=== PATIENT | male | born 1975 | race Asian ===

== ENCOUNTER 2020-03-24 16:17 | Emergency (ER) | payer SELFPAY ==
[~2020-03-24] VITALS: Ht 165.1 cm; Wt 49.9 kg
[2020-03-24 16:20] VITALS: BP_SYST 142
--- NOTE | 2020-03-24 16:26 | NUR ---
Patient triaged and placed in waiting room. VSS and patient appears in no acute distress at this time. Accompanied by group manager, awaiting available bed, and MD notified of need for MSE.
--- NOTE | 2020-03-24 17:34 | NUR ---
Patient to ER bed 1 to gown for evaluation. Side rails up. Report given to FLACO Lambert.
--- NOTE | 2020-03-24 17:42 | NUR ---
Pt brought by skilled nursing caregiver, pt c/o groin pain for few days, skin pink and warm, cap refill <3, VSS, respirations even and unlabored, pt afebrile, will cont to monitor.
--- NOTE | 2020-03-24 17:45 | NUR ---
Dr Graff evaluating patient at bedside
--- NOTE | 2020-03-24 18:15 | NUR ---
Patient given written and verbal discharge instructions and verbalizes understanding. ER MD discussed with patient the results and treatment provided. Patient in stable condition. ID arm band removed. IV catheter removed intact and dressing applied, no active bleeding. Rx of tramadol,bactrim DS given. Patient educated on pain management and to follow up with PMD. Pain Scale 0/10. Opportunity for questions provided and answered. Medication side effect fact sheet provided.
[2020-03-24 18:16] VITALS: BP_SYST 113
== END 2020-03-24 18:16 | disposition home or self-care (01) ==
LOC: SED 16:17
DX: L03.314 Cellulitis of groin (principal); R10.2 Pelvic and perineal pain
CPT/HCPCS: 99284

== ENCOUNTER 2020-04-17 16:09 | Emergency (ER) | payer SELFPAY ==
[~2020-04-17] VITALS: Ht 165.1 cm; Wt 63.5 kg
[2020-04-17 16:17] VITALS: BP_SYST 119
[2020-04-17 16:40] LABS: BILIRUBIN,URINE NEGATIVE (NEGATIVE); BLOOD, URINE 2+ (NEGATIVE); CLARITY/URINE SL CLOUDY (CLEAR); COLOR,URINE YELLOW (YELLOW); GLUCOSE,URINE NEGATIVE (NEGATIVE); KETONES,URINE NEGATIVE (NEGATIVE); LEUKOCYTE ESTERASE ,URINE 3+ (NEGATIVE); NITRITE, URINE NEGATIVE (NEGATIVE); PROTEIN URINE 1+ (NEGATIVE); UROBILINOGEN,URINE 0.2 (0.2-1.0)
[2020-04-17 16:47] LABS: BACTERIA,URINE MODERATE /HPF (None Seen); MUCUS,URINE None Seen /LPF (None Seen); WBC,URINE >100 /HPF (0-3)
[2020-04-17 17:04] VITALS: BP_SYST 119
== END 2020-04-17 17:06 | disposition home or self-care (01) ==
LOC: SED 16:09
DX: N39.0 Urinary tract infection, site not specified (principal)
CPT/HCPCS: 81000-TC; 87086; 99283

== ENCOUNTER 2020-04-30 16:54 | Emergency (ER) | payer SELFPAY ==
[~2020-04-30] VITALS: Ht 165.1 cm; Wt 63.5 kg
[2020-04-30 17:18] VITALS: BP_SYST 120
--- NOTE | 2020-04-30 17:38 | NUR ---
Patient accompanied by strip stamp straightener c/o of wound to genital area for unknown days. Also here for urine recheck after completing abx. denies any pain.
--- NOTE | 2020-04-30 17:38 | NUR ---
Patient to ER bed 02 to gown for evaluation. Side rails up. Report given to FLACO Rasmussen
--- NOTE | 2020-04-30 18:00 | NUR ---
ER Dr. Bhardwaj at bedside examining patient and performing wound treatment
[2020-04-30 18:19] LABS: BILIRUBIN,URINE NEGATIVE (NEGATIVE); BLOOD, URINE 2+ (NEGATIVE); CLARITY/URINE CLOUDY (CLEAR); COLOR,URINE YELLOW (YELLOW); GLUCOSE,URINE NEGATIVE (NEGATIVE); KETONES,URINE NEGATIVE (NEGATIVE); LEUKOCYTE ESTERASE ,URINE 3+ (NEGATIVE); NITRITE, URINE POSITIVE (NEGATIVE); PROTEIN URINE 2+ (NEGATIVE); UROBILINOGEN,URINE 0.2 (0.2-1.0)
[2020-04-30] MEDS: cephALEXin 500 MG CAPSULE PO ONE (18:24)
--- NOTE | 2020-04-30 18:37 | NUR ---
Patient given written and verbal discharge instructions and verbalizes understanding. ER MD discussed with patient the results and treatment provided. Patient in stable condition. ID arm band removed. Rx of keflex given. Patient educated on pain management and to follow up with PMD. Pain Scale 0/10. Opportunity for questions provided and answered. Medication side effect fact sheet provided.
[2020-04-30 18:40] VITALS: BP_SYST 120
[2020-04-30 18:46] LABS: BACTERIA,URINE MODERATE /HPF (None Seen); MUCUS,URINE None Seen /LPF (None Seen); WBC,URINE >100 /HPF (0-3)
== END 2020-04-30 18:40 | disposition home or self-care (01) ==
LOC: SED 16:54
DX: N39.0 Urinary tract infection, site not specified (principal)
CPT/HCPCS: 81000-TC; 87086; 87186-TC; 99283

== ENCOUNTER 2020-07-15 15:08 | Inpatient (IN) | payer MEDICAID, SELFPAY ==
[~2020-07-15] VITALS: Ht 165.1 cm; Wt 59.9 kg
[2020-07-15 15:19] VITALS: BP_SYST 132
[2020-07-15] MEDS ORDERED: NACL 0.9% 1,000 ML IV ONE (17:30)
[2020-07-15] MEDS ORDERED: ONDANSETRON HCL 4 MG/2 ML VIAL IVP ONE (17:30)
[2020-07-15] MEDS ORDERED: KETOROLAC TROMETHAMINE 30 MG VIAL IVP ONE (17:30)
[2020-07-15 18:02] LABS: BASOPHILS # (AUTO) 0.1 K/uL (0.0-0.2); BASOPHILS % (AUTO) 0.4 % (0.0-2.0); HEMATOCRIT 39.3 % (36-54); HEMOGLOBIN 12.5 g/dL (14.0-18.0); LYMPHOCYTES # (AUTO) 0.4 K/uL (1.0-5.5); LYMPHOCYTES % (AUTO) 2.7 % (20.5-51.5); MEAN CORPUSCULAR HEMOGLOBIN 33 pg (27-31); MEAN CORPUSCULAR HGB CONC 32 % (32-36); MEAN CORPUSCULAR VOLUME 103 fL (79.0-98.0); MONOCYTES # (AUTO) 0.8 K/uL (0.0-1.0); MONOCYTES % (AUTO) 5.9 % (1.7-9.3); NEUTROPHILS # (AUTO) 12.8 K/uL (1.8-7.7); PLATELET COUNT (AUTO) 381 K/uL (130-430); RED BLOOD CELL COUNT(AUTO) 3.82 MIL/uL (4.2-6.2); RED CELL DISTRIBUTION WIDTH 13.2 % (9.0-15.0)
[2020-07-15 18:40] LABS: CALCIUM 9.8 mg/dL (8.4-11.0)
[2020-07-15 18:41] LABS: ALBUMIN 3.1 g/dL (3.4-4.8); CREATININE 15.92 mg/dL (0.55-1.30); TOTAL BILIRUBIN 0.3 mg/dL (0.0-1.0)
[2020-07-15] MEDS ORDERED: ALBUTEROL SULFATE 0.083% 2.5 MG/3 ML VIAL.NEB INH ONE (18:45)
[2020-07-15] MEDS ORDERED: INSULIN Lispro 100 UNITS/ML VIAL (humaLOG) IV ONE (18:45)
[2020-07-15] MEDS ORDERED: DEXTROSE 50% JECT 50 ML DISP.SYRIN IVP ONE (19:30)
[2020-07-15 19:36] LABS: BILIRUBIN,URINE NEGATIVE (NEGATIVE); BLOOD, URINE 3+ (NEGATIVE); CLARITY/URINE TURBID (CLEAR); COLOR,URINE YELLOW (YELLOW); GLUCOSE,URINE NEGATIVE (NEGATIVE); KETONES,URINE TRACE (NEGATIVE); LEUKOCYTE ESTERASE ,URINE 2+ (NEGATIVE); NITRITE, URINE NEGATIVE (NEGATIVE); PH,URINE 6.5 (5.0-8.0); PROTEIN URINE 3+ (NEGATIVE); UROBILINOGEN,URINE 0.2 (0.2-1.0)
[2020-07-15 20:06] LABS: BACTERIA,URINE MODERATE /HPF (None Seen); MUCUS,URINE None Seen /LPF (None Seen); RBC,URINE 20-50 /HPF (0-3); WBC,URINE >100 /HPF (0-3)
[2020-07-15] MEDS ORDERED: CALCIUM GLUCONATE 1 GM/10 ML VIAL IVP ONE (20:15)
[2020-07-15] MEDS ORDERED: CALCIUM GLUCONATE 1 GM/10 ML VIAL ONE (20:37)
[2020-07-15] MEDS ORDERED: 0.45% NS 500 ML IV ONE (20:45)
[2020-07-15] MEDS ORDERED: SODIUM BICARBONATE 8.4% JECT 50 MEQ/50 ML SYRINGE IVP ONE (20:45)
[2020-07-15 21:10] VITALS: BP_SYST 118
[2020-07-16] VITALS: BP_SYST 114
[2020-07-16] MEDS ORDERED: HYDROcodone/ACETAMIN 5-325 MG TAB (NORCO/ VICODIN) PO PRN (00:15)
[2020-07-16] MEDS ORDERED: ONDANSETRON HCL 4 MG/2 ML VIAL IVP PRN (00:15)
[2020-07-16] MEDS ORDERED: LORazepam 2 MG/ML VIAL IVP PRN (00:15)
[2020-07-16] MEDS ORDERED: ACETAMINOPHEN 325 MG TABLET PO PRN (00:15)
[2020-07-16] MEDS ORDERED: HYDROcodone/ACETAMIN 10-325 MG TAB PO PRN (00:15)
[2020-07-16] MEDS ORDERED: NALOXONE HCL 0.4 MG/ML AMP (NARCAN) IVP PRN ×2 (00:15)
[2020-07-16] MEDS ORDERED: cefTRIAXone 1 GM IVPB PREMIX 50 ML IV ONE (04:24)
[2020-07-16] MEDS: cefTRIAXone 1 GM IVPB PREMIX 50 ML IV SCH (04:51)
[2020-07-16 06:43] LABS: BASOPHILS % (AUTO) 0.2 % (0.0-2.0); HEMATOCRIT 33.7 % (36-54); LYMPHOCYTES # (AUTO) 0.5 K/uL (1.0-5.5); LYMPHOCYTES % (AUTO) 5.1 % (20.5-51.5); MEAN CORPUSCULAR HEMOGLOBIN 33 pg (27-31); MEAN CORPUSCULAR HGB CONC 33 % (32-36); MEAN CORPUSCULAR VOLUME 101 fL (79.0-98.0); MONOCYTES # (AUTO) 0.8 K/uL (0.0-1.0); MONOCYTES % (AUTO) 7.9 % (1.7-9.3); NEUTROPHILS # (AUTO) 8.6 K/uL (1.8-7.7); NEUTROPHILS % (AUTO) 86.8 % (40.0-70.0); PLATELET COUNT (AUTO) 343 K/uL (130-430); RED BLOOD CELL COUNT(AUTO) 3.33 MIL/uL (4.2-6.2); RED CELL DISTRIBUTION WIDTH 13.2 % (9.0-15.0); WHITE BLOOD COUNT (AUTO) 9.9 K/uL (4.8-10.8)
[2020-07-16 07:26] LABS: ALBUMIN 2.4 g/dL (3.4-4.8); CALCIUM 8.4 mg/dL (8.4-11.0); TOTAL BILIRUBIN 0.4 mg/dL (0.0-1.0)
[2020-07-16 08:00] VITALS: BP_SYST 146
[2020-07-16 09:20] LABS: CREATININE 12.28 mg/dL (0.55-1.30); POTASSIUM 6.5 mmol/L (3.5-5.1)
[2020-07-16 12:00] VITALS: BP_SYST 132
[2020-07-16 13:35] LABS: CALCIUM 8.4 mg/dL (8.4-11.0); POTASSIUM 5.7 mmol/L (3.5-5.1)
[2020-07-16 13:41] LABS: ALBUMIN 2.4 g/dL (3.4-4.8); TOTAL BILIRUBIN 0.2 mg/dL (0.0-1.0)
[2020-07-16 14:08] LABS: CREATININE 11.53 mg/dL (0.55-1.30)
[2020-07-16] MEDS ORDERED: SODIUM POLYSTYRENE SULFONATE 15 GM/60 ML UDBTL PO ONE (14:30)
[2020-07-16 15:48] VITALS: BP_SYST 141
[2020-07-16 16:07] VITALS: BP_SYST 141
[2020-07-16 20:00] VITALS: BP_SYST 136
[2020-07-17] VITALS: BP_SYST 130
[2020-07-17] MEDS: cefTRIAXone 1 GM IVPB PREMIX 50 ML IV SCH (01:44)
[2020-07-17 07:05] LABS: BASOPHILS % (AUTO) 0.1 % (0.0-2.0); HEMATOCRIT 33.5 % (36-54); HEMOGLOBIN 11.3 g/dL (14.0-18.0); LYMPHOCYTES # (AUTO) 0.6 K/uL (1.0-5.5); LYMPHOCYTES % (AUTO) 6.5 % (20.5-51.5); MEAN CORPUSCULAR HEMOGLOBIN 34 pg (27-31); MEAN CORPUSCULAR HGB CONC 34 % (32-36); MEAN CORPUSCULAR VOLUME 100 fL (79.0-98.0); MONOCYTES # (AUTO) 0.6 K/uL (0.0-1.0); MONOCYTES % (AUTO) 6.5 % (1.7-9.3); NEUTROPHILS # (AUTO) 7.4 K/uL (1.8-7.7); NEUTROPHILS % (AUTO) 86.9 % (40.0-70.0); PLATELET COUNT (AUTO) 325 K/uL (130-430); RED BLOOD CELL COUNT(AUTO) 3.36 MIL/uL (4.2-6.2); RED CELL DISTRIBUTION WIDTH 13.1 % (9.0-15.0); WHITE BLOOD COUNT (AUTO) 8.6 K/uL (4.8-10.8)
[2020-07-17 08:00] VITALS: BP_SYST 131
[2020-07-17 08:17] LABS: ERYTHROCYTE SEDIMENTATION RATE 82 MM/HR (0-15)
[2020-07-17 08:24] LABS: ALBUMIN 2.1 g/dL (3.4-4.8); CALCIUM 7.7 mg/dL (8.4-11.0); PHOSPHORUS 5.6 mg/dL (2.7-4.5); POTASSIUM 3.9 mmol/L (3.5-5.1); TOTAL BILIRUBIN 0.3 mg/dL (0.0-1.0)
[2020-07-17 08:46] LABS: CREATININE 7.53 mg/dL (0.55-1.30)
[2020-07-17 10:29] LABS: C-REACTIVE PROTEIN QUANT 22.8 mg/dL (0-0.5)
[2020-07-17] MEDS: NACL 0.9% 1,000 ML IV SCH (10:30)
[2020-07-17 12:10] VITALS: BP_SYST 113
[2020-07-17 16:10] VITALS: BP_SYST 119
[2020-07-18 00:16] VITALS: BP_SYST 107
[2020-07-18] MEDS: cefTRIAXone 1 GM IVPB PREMIX 50 ML IV SCH (01:24)
[2020-07-18] MEDS: NACL 0.9% 1,000 ML IV SCH ×4 (01:24→20:12)
[2020-07-18 06:52] LABS: BASOPHILS % (AUTO) 0.1 % (0.0-2.0); EOSINOPHILS # (AUTO) 0.1 K/uL (0.0-0.4); EOSINOPHILS % (AUTO) 0.6 % (0.0-4.0); HEMATOCRIT 30.9 % (36-54); HEMOGLOBIN 10.4 g/dL (14.0-18.0); LYMPHOCYTES # (AUTO) 0.9 K/uL (1.0-5.5); LYMPHOCYTES % (AUTO) 11.8 % (20.5-51.5); MEAN CORPUSCULAR HEMOGLOBIN 34 pg (27-31); MEAN CORPUSCULAR HGB CONC 34 % (32-36); MEAN CORPUSCULAR VOLUME 100 fL (79.0-98.0); MONOCYTES # (AUTO) 0.8 K/uL (0.0-1.0); NEUTROPHILS # (AUTO) 6.1 K/uL (1.8-7.7); NEUTROPHILS % (AUTO) 77.5 % (40.0-70.0); PLATELET COUNT (AUTO) 290 K/uL (130-430); RED CELL DISTRIBUTION WIDTH 12.9 % (9.0-15.0); WHITE BLOOD COUNT (AUTO) 7.9 K/uL (4.8-10.8)
[2020-07-18 07:45] LABS: ALBUMIN 1.8 g/dL (3.4-4.8); CALCIUM 7.4 mg/dL (8.4-11.0); CREATININE 2.86 mg/dL (0.55-1.30); POTASSIUM 3.5 mmol/L (3.5-5.1); TOTAL BILIRUBIN 0.2 mg/dL (0.0-1.0)
[2020-07-18 07:59] LABS: ERYTHROCYTE SEDIMENTATION RATE 78 MM/HR (0-15)
[2020-07-18 08:34] VITALS: BP_SYST 123
[2020-07-18 10:34] LABS: C-REACTIVE PROTEIN QUANT 18.3 mg/dL (0-0.5)
[2020-07-18 12:00] VITALS: BP_SYST 105
[2020-07-18 16:00] VITALS: BP_SYST 114; BP_SYST 144
[2020-07-18 20:00] VITALS: BP_SYST 111
[2020-07-19] VITALS: BP_SYST 117
[2020-07-19] MEDS: cefTRIAXone 1 GM IVPB PREMIX 50 ML IV SCH (01:06)
[2020-07-19 07:24] LABS: BASOPHILS % (AUTO) 0.2 % (0.0-2.0); EOSINOPHILS # (AUTO) 0.2 K/uL (0.0-0.4); EOSINOPHILS % (AUTO) 2.5 % (0.0-4.0); HEMATOCRIT 36.3 % (36-54); HEMOGLOBIN 12.2 g/dL (14.0-18.0); LYMPHOCYTES # (AUTO) 1.3 K/uL (1.0-5.5); LYMPHOCYTES % (AUTO) 15.1 % (20.5-51.5); MEAN CORPUSCULAR HEMOGLOBIN 34 pg (27-31); MEAN CORPUSCULAR HGB CONC 34 % (32-36); MEAN CORPUSCULAR VOLUME 99 fL (79.0-98.0); MONOCYTES # (AUTO) 0.7 K/uL (0.0-1.0); MONOCYTES % (AUTO) 8.5 % (1.7-9.3); NEUTROPHILS # (AUTO) 6.4 K/uL (1.8-7.7); NEUTROPHILS % (AUTO) 73.7 % (40.0-70.0); PLATELET COUNT (AUTO) 338 K/uL (130-430); RED BLOOD CELL COUNT(AUTO) 3.65 MIL/uL (4.2-6.2); RED CELL DISTRIBUTION WIDTH 12.8 % (9.0-15.0); WHITE BLOOD COUNT (AUTO) 8.6 K/uL (4.8-10.8)
[2020-07-19 07:57] LABS: CALCIUM 7.4 mg/dL (8.4-11.0); CREATININE 1.68 mg/dL (0.55-1.30); POTASSIUM 3.6 mmol/L (3.5-5.1)
[2020-07-19 07:58] LABS: PHOSPHORUS 2.4 mg/dL (2.7-4.5)
[2020-07-19 08:00] VITALS: BP_SYST 115
[2020-07-19 08:54] LABS: ERYTHROCYTE SEDIMENTATION RATE 85 MM/HR (0-15)
[2020-07-19] MEDS ORDERED: NA PHOS 15 MM in NS 250 ML IV ONE (11:15)
[2020-07-19] MEDS ORDERED: MAGNESIUM SULFATE 50 ML IV ONE (11:15)
[2020-07-19 12:00] VITALS: BP_SYST 108
[2020-07-19] MEDS: NACL 0.9% 1,000 ML IV SCH ×2 (12:22→20:15)
[2020-07-19 16:00] VITALS: BP_SYST 102
[2020-07-19 16:41] LABS: C-REACTIVE PROTEIN QUANT 12.9 mg/dL (0-0.5)
[2020-07-19 20:02] VITALS: BP_SYST 104
[2020-07-20 00:27] VITALS: BP_SYST 92
[2020-07-20] MEDS: cefTRIAXone 1 GM IVPB PREMIX 50 ML IV SCH (02:37)
[2020-07-20 07:46] LABS: BASOPHILS % (AUTO) 0.4 % (0.0-2.0); EOSINOPHILS # (AUTO) 0.3 K/uL (0.0-0.4); EOSINOPHILS % (AUTO) 2.6 % (0.0-4.0); HEMATOCRIT 32.4 % (36-54); HEMOGLOBIN 10.8 g/dL (14.0-18.0); LYMPHOCYTES # (AUTO) 1.4 K/uL (1.0-5.5); LYMPHOCYTES % (AUTO) 14.5 % (20.5-51.5); MEAN CORPUSCULAR HEMOGLOBIN 33 pg (27-31); MEAN CORPUSCULAR HGB CONC 34 % (32-36); MEAN CORPUSCULAR VOLUME 100 fL (79.0-98.0); MONOCYTES # (AUTO) 0.7 K/uL (0.0-1.0); MONOCYTES % (AUTO) 7.3 % (1.7-9.3); NEUTROPHILS # (AUTO) 7.4 K/uL (1.8-7.7); NEUTROPHILS % (AUTO) 75.2 % (40.0-70.0); PLATELET COUNT (AUTO) 311 K/uL (130-430); RED BLOOD CELL COUNT(AUTO) 3.25 MIL/uL (4.2-6.2); RED CELL DISTRIBUTION WIDTH 12.6 % (9.0-15.0); WHITE BLOOD COUNT (AUTO) 9.8 K/uL (4.8-10.8)
[2020-07-20 08:09] LABS: CALCIUM 7.2 mg/dL (8.4-11.0); CREATININE 1.69 mg/dL (0.55-1.30); PHOSPHORUS 2.8 mg/dL (2.7-4.5); POTASSIUM 3.7 mmol/L (3.5-5.1); TOTAL BILIRUBIN 0.1 mg/dL (0.0-1.0)
[2020-07-20 09:01] LABS: C-REACTIVE PROTEIN QUANT 4.9 mg/dL (0-0.5)
[2020-07-20] MEDS: NACL 0.9% 1,000 ML IV SCH (10:43)
[2020-07-20 10:57] LABS: ERYTHROCYTE SEDIMENTATION RATE 81 MM/HR (0-15)
[2020-07-20 11:43] VITALS: BP_SYST 97
[2020-07-20 15:26] VITALS: BP_SYST 91
[2020-07-20 20:00] VITALS: BP_SYST 101
[2020-07-21] VITALS: BP_SYST 104
[2020-07-21] MEDS: cefTRIAXone 1 GM IVPB PREMIX 50 ML IV SCH (00:42)
[2020-07-21] MEDS: NACL 0.9% 1,000 ML IV SCH (00:47)
[2020-07-21 07:36] LABS: ALBUMIN 2.1 g/dL (3.4-4.8); CALCIUM 7.6 mg/dL (8.4-11.0); CREATININE 1.55 mg/dL (0.55-1.30); PHOSPHORUS 2.7 mg/dL (2.7-4.5); POTASSIUM 3.7 mmol/L (3.5-5.1); TOTAL BILIRUBIN 0.2 mg/dL (0.0-1.0)
[2020-07-21 07:37] LABS: BASOPHILS % (AUTO) 0.5 % (0.0-2.0); EOSINOPHILS # (AUTO) 0.2 K/uL (0.0-0.4); EOSINOPHILS % (AUTO) 1.9 % (0.0-4.0); HEMOGLOBIN 11.4 g/dL (14.0-18.0); LYMPHOCYTES # (AUTO) 1.6 K/uL (1.0-5.5); MEAN CORPUSCULAR HEMOGLOBIN 33 pg (27-31); MEAN CORPUSCULAR HGB CONC 34 % (32-36); MEAN CORPUSCULAR VOLUME 99 fL (79.0-98.0); MONOCYTES # (AUTO) 0.7 K/uL (0.0-1.0); NEUTROPHILS # (AUTO) 8.1 K/uL (1.8-7.7); NEUTROPHILS % (AUTO) 75.6 % (40.0-70.0); PLATELET COUNT (AUTO) 318 K/uL (130-430); RED BLOOD CELL COUNT(AUTO) 3.42 MIL/uL (4.2-6.2); RED CELL DISTRIBUTION WIDTH 12.7 % (9.0-15.0); WHITE BLOOD COUNT (AUTO) 10.8 K/uL (4.8-10.8)
[2020-07-21 08:04] VITALS: BP_SYST 114
[2020-07-21 09:59] LABS: C-REACTIVE PROTEIN QUANT 3.3 mg/dL (0-0.5)
[2020-07-21 10:08] LABS: ERYTHROCYTE SEDIMENTATION RATE 87 MM/HR (0-15)
[2020-07-21 11:28] VITALS: BP_SYST 109
[2020-07-21 14:59] LABS: PROTHROMBIN TIME 9.8 SECS (9.5-12.5)
[2020-07-21 15:23] VITALS: BP_SYST 113
[2020-07-21] MEDS ORDERED: ROCURONIUM BROMIDE 10 MG/ML (ZEMURON) ONE (19:10)
[2020-07-21] MEDS ORDERED: GLYCOPYRROLATE 0.2 MG/ML VIAL ONE (19:10)
[2020-07-21] MEDS ORDERED: NS IRRIG SOLN 5000 ML IR ONE (19:10)
[2020-07-21] MEDS ORDERED: ONDANSETRON HCL 4 MG/2 ML VIAL ONE (19:10)
[2020-07-21] MEDS ORDERED: fentaNYL CITRATE/PF 100 MCG/2 ML AMP ONE (19:10)
[2020-07-21] MEDS ORDERED: METOCLOPRAMIDE HCL 10 MG/2 ML VIAL ONE (19:10)
[2020-07-21] MEDS ORDERED: LIDOCAINE 1% 10 MG/ML, 20 ML MDV ONE (19:10)
[2020-07-21] MEDS ORDERED: MIDAZOLAM HCL 5 MG/ML VIAL (VERSED) IV ONE (19:10)
[2020-07-21] MEDS ORDERED: LR 1,000 ML IV.SOLN IV ONE (19:10)
[2020-07-21] MEDS ORDERED: SEVOFLURANE 15 MIN GAS INH ONE (19:10)
[2020-07-21] MEDS ORDERED: PHENYLEPHRINE HCL 10 MG/ML VIAL (NEOSYNEPHRINE) ONE (19:10)
[2020-07-21] MEDS ORDERED: PROPOFOL 200MG/ 20ML VIAL (DIPRIVAN) IV ONE (19:10)
[2020-07-21] MEDS ORDERED: HYDROmorphone 1 MG INJ. 1 MG/ML AMPUL ONE (19:10)
[2020-07-21] MEDS ORDERED: NALOXONE HCL 0.4 MG/ML AMP (NARCAN) IVP PRN (19:15)
[2020-07-21] MEDS ORDERED: ONDANSETRON HCL 4 MG/2 ML VIAL IVP PRN (19:15)
[2020-07-21] MEDS ORDERED: LR 1,000 ML IV SCH (19:15)
[2020-07-21] MEDS ORDERED: HYDROmorphone 1 MG INJ. 1 MG/ML AMPUL IVP PRN ×2 (19:15)
[2020-07-21 20:20] VITALS: BP_SYST 115
[2020-07-22 00:03] VITALS: BP_SYST 119
[2020-07-22] MEDS: cefTRIAXone 1 GM IVPB PREMIX 50 ML IV SCH (01:12)
[2020-07-22] MEDS: NACL 0.9% 1,000 ML IV SCH ×2 (01:13→22:02)
[2020-07-22 07:19] LABS: BASOPHILS # (AUTO) 0.1 K/uL (0.0-0.2); BASOPHILS % (AUTO) 0.3 % (0.0-2.0); HEMATOCRIT 35.6 % (36-54); HEMOGLOBIN 11.9 g/dL (14.0-18.0); MEAN CORPUSCULAR HEMOGLOBIN 34 pg (27-31); MEAN CORPUSCULAR HGB CONC 34 % (32-36); MEAN CORPUSCULAR VOLUME 100 fL (79.0-98.0); MONOCYTES # (AUTO) 0.6 K/uL (0.0-1.0); MONOCYTES % (AUTO) 3.1 % (1.7-9.3); NEUTROPHILS # (AUTO) 18.7 K/uL (1.8-7.7); NEUTROPHILS % (AUTO) 91.6 % (40.0-70.0); PLATELET COUNT (AUTO) 378 K/uL (130-430); RED BLOOD CELL COUNT(AUTO) 3.54 MIL/uL (4.2-6.2); RED CELL DISTRIBUTION WIDTH 12.8 % (9.0-15.0); WHITE BLOOD COUNT (AUTO) 20.4 K/uL (4.8-10.8)
[2020-07-22 08:00] VITALS: BP_SYST 124
[2020-07-22 08:09] LABS: CALCIUM 8.5 mg/dL (8.4-11.0); CREATININE 1.68 mg/dL (0.55-1.30); POTASSIUM 4.5 mmol/L (3.5-5.1)
[2020-07-22 08:35] LABS: ERYTHROCYTE SEDIMENTATION RATE 86 MM/HR (0-15)
[2020-07-22 09:57] LABS: C-REACTIVE PROTEIN QUANT 2.9 mg/dL (0-0.5)
[2020-07-22 11:45] VITALS: BP_SYST 119
[2020-07-22 14:37] VITALS: BP_SYST 119
[2020-07-22 16:00] VITALS: BP_SYST 120
[2020-07-22 20:00] VITALS: BP_SYST 126
[2020-07-22] MEDS: metroNIDAZOLE 500 mg/NS 100 ML IV SCH (22:02)
[2020-07-23] VITALS: BP_SYST 109
[2020-07-23 07:48] LABS: BASOPHILS % (AUTO) 0.3 % (0.0-2.0); EOSINOPHILS # (AUTO) 0.1 K/uL (0.0-0.4); EOSINOPHILS % (AUTO) 0.8 % (0.0-4.0); HEMATOCRIT 33.8 % (36-54); HEMOGLOBIN 11.2 g/dL (14.0-18.0); LYMPHOCYTES # (AUTO) 1.3 K/uL (1.0-5.5); LYMPHOCYTES % (AUTO) 9.2 % (20.5-51.5); MEAN CORPUSCULAR HEMOGLOBIN 33 pg (27-31); MEAN CORPUSCULAR HGB CONC 33 % (32-36); MEAN CORPUSCULAR VOLUME 100 fL (79.0-98.0); MONOCYTES # (AUTO) 0.9 K/uL (0.0-1.0); MONOCYTES % (AUTO) 5.9 % (1.7-9.3); NEUTROPHILS # (AUTO) 12.3 K/uL (1.8-7.7); NEUTROPHILS % (AUTO) 83.8 % (40.0-70.0); PLATELET COUNT (AUTO) 368 K/uL (130-430); RED BLOOD CELL COUNT(AUTO) 3.39 MIL/uL (4.2-6.2); RED CELL DISTRIBUTION WIDTH 12.8 % (9.0-15.0); WHITE BLOOD COUNT (AUTO) 14.7 K/uL (4.8-10.8)
[2020-07-23 07:52] LABS: CALCIUM 8.2 mg/dL (8.4-11.0); CREATININE 1.59 mg/dL (0.55-1.30); PHOSPHORUS 2.6 mg/dL (2.7-4.5); POTASSIUM 3.8 mmol/L (3.5-5.1)
[2020-07-23 08:33] LABS: C-REACTIVE PROTEIN QUANT 5.9 mg/dL (0-0.5)
[2020-07-23 09:00] VITALS: BP_SYST 100
[2020-07-23 09:30] VITALS: BP_SYST 100
[2020-07-23] MEDS: metroNIDAZOLE 500 mg/NS 100 ML IV SCH ×2 (09:54→22:13)
[2020-07-23 10:55] LABS: ERYTHROCYTE SEDIMENTATION RATE 86 MM/HR (0-15)
[2020-07-23 12:00] VITALS: BP_SYST 102
[2020-07-23 16:00] VITALS: BP_SYST 115
[2020-07-23] MEDS ORDERED: NA PHOS 15 MM in NS 250 ML IV ONE (17:45)
[2020-07-23] MEDS: NACL 0.9% 1,000 ML IV SCH (18:52)
[2020-07-23 20:00] VITALS: BP_SYST 106
[2020-07-24 00:20] VITALS: BP_SYST 110
[2020-07-24 08:20] VITALS: BP_SYST 104
[2020-07-24 08:21] LABS: BASOPHILS # (AUTO) 0.1 K/uL (0.0-0.2); BASOPHILS % (AUTO) 0.5 % (0.0-2.0); EOSINOPHILS # (AUTO) 0.2 K/uL (0.0-0.4); EOSINOPHILS % (AUTO) 1.4 % (0.0-4.0); HEMATOCRIT 31.5 % (36-54); HEMOGLOBIN 10.5 g/dL (14.0-18.0); LYMPHOCYTES # (AUTO) 1.6 K/uL (1.0-5.5); LYMPHOCYTES % (AUTO) 13.1 % (20.5-51.5); MEAN CORPUSCULAR HEMOGLOBIN 33 pg (27-31); MEAN CORPUSCULAR HGB CONC 33 % (32-36); MEAN CORPUSCULAR VOLUME 99 fL (79.0-98.0); MONOCYTES # (AUTO) 0.8 K/uL (0.0-1.0); MONOCYTES % (AUTO) 6.7 % (1.7-9.3); NEUTROPHILS # (AUTO) 9.6 K/uL (1.8-7.7); NEUTROPHILS % (AUTO) 78.3 % (40.0-70.0); PLATELET COUNT (AUTO) 371 K/uL (130-430); RED BLOOD CELL COUNT(AUTO) 3.17 MIL/uL (4.2-6.2); RED CELL DISTRIBUTION WIDTH 12.7 % (9.0-15.0); WHITE BLOOD COUNT (AUTO) 12.3 K/uL (4.8-10.8)
[2020-07-24] MEDS: metroNIDAZOLE 500 mg/NS 100 ML IV SCH ×2 (09:23→20:25)
[2020-07-24 09:29] LABS: CREATININE 1.37 mg/dL (0.55-1.30)
[2020-07-24 12:00] VITALS: BP_SYST 101
[2020-07-24] MEDS: NACL 0.9% 1,000 ML IV SCH (15:21)
[2020-07-24 15:54] VITALS: BP_SYST 103
[2020-07-24 20:30] VITALS: BP_SYST 108
[2020-07-25] MEDS: NACL 0.9% 1,000 ML IV SCH ×2 (00:25→21:11)
[2020-07-25 06:28] VITALS: BP_SYST 101
[2020-07-25 07:31] LABS: C-REACTIVE PROTEIN QUANT 7.7 mg/dL (0-0.5)
[2020-07-25 07:34] LABS: ERYTHROCYTE SEDIMENTATION RATE 82 MM/HR (0-15)
[2020-07-25 07:44] LABS: BASOPHILS # (AUTO) 0.1 K/uL (0.0-0.2); BASOPHILS % (AUTO) 0.5 % (0.0-2.0); EOSINOPHILS # (AUTO) 0.1 K/uL (0.0-0.4); EOSINOPHILS % (AUTO) 1.4 % (0.0-4.0); HEMATOCRIT 31.7 % (36-54); HEMOGLOBIN 10.9 g/dL (14.0-18.0); LYMPHOCYTES # (AUTO) 1.4 K/uL (1.0-5.5); LYMPHOCYTES % (AUTO) 13.1 % (20.5-51.5); MEAN CORPUSCULAR HEMOGLOBIN 34 pg (27-31); MEAN CORPUSCULAR HGB CONC 34 % (32-36); MEAN CORPUSCULAR VOLUME 99 fL (79.0-98.0); MONOCYTES # (AUTO) 0.7 K/uL (0.0-1.0); MONOCYTES % (AUTO) 6.6 % (1.7-9.3); NEUTROPHILS # (AUTO) 8.5 K/uL (1.8-7.7); NEUTROPHILS % (AUTO) 78.4 % (40.0-70.0); PLATELET COUNT (AUTO) 412 K/uL (130-430); RED BLOOD CELL COUNT(AUTO) 3.21 MIL/uL (4.2-6.2); RED CELL DISTRIBUTION WIDTH 12.7 % (9.0-15.0); WHITE BLOOD COUNT (AUTO) 10.9 K/uL (4.8-10.8)
[2020-07-25 08:00] VITALS: BP_SYST 130
[2020-07-25 08:10] LABS: CREATININE 1.31 mg/dL (0.55-1.30); POTASSIUM 4.2 mmol/L (3.5-5.1)
[2020-07-25] MEDS: metroNIDAZOLE 500 mg/NS 100 ML IV SCH ×2 (08:49→21:03)
[2020-07-25 08:52] LABS: C-REACTIVE PROTEIN QUANT 3.3 mg/dL (0-0.5)
[2020-07-25 11:23] VITALS: BP_SYST 96
[2020-07-25 11:23] LABS: ERYTHROCYTE SEDIMENTATION RATE 85 MM/HR (0-15)
[2020-07-25 15:38] VITALS: BP_SYST 99
[2020-07-25 20:30] VITALS: BP_SYST 105
[2020-07-26 00:30] VITALS: BP_SYST 104
[2020-07-26 08:15] LABS: BASOPHILS # (AUTO) 0.1 K/uL (0.0-0.2); BASOPHILS % (AUTO) 0.6 % (0.0-2.0); EOSINOPHILS # (AUTO) 0.2 K/uL (0.0-0.4); EOSINOPHILS % (AUTO) 1.4 % (0.0-4.0); HEMATOCRIT 32.2 % (36-54); HEMOGLOBIN 10.8 g/dL (14.0-18.0); LYMPHOCYTES # (AUTO) 1.6 K/uL (1.0-5.5); LYMPHOCYTES % (AUTO) 14.1 % (20.5-51.5); MEAN CORPUSCULAR HEMOGLOBIN 34 pg (27-31); MEAN CORPUSCULAR HGB CONC 34 % (32-36); MEAN CORPUSCULAR VOLUME 100 fL (79.0-98.0); MONOCYTES # (AUTO) 0.6 K/uL (0.0-1.0); MONOCYTES % (AUTO) 5.5 % (1.7-9.3); NEUTROPHILS # (AUTO) 8.9 K/uL (1.8-7.7); NEUTROPHILS % (AUTO) 78.4 % (40.0-70.0); PLATELET COUNT (AUTO) 464 K/uL (130-430); RED BLOOD CELL COUNT(AUTO) 3.23 MIL/uL (4.2-6.2); RED CELL DISTRIBUTION WIDTH 12.9 % (9.0-15.0); WHITE BLOOD COUNT (AUTO) 11.4 K/uL (4.8-10.8)
[2020-07-26] MEDS: metroNIDAZOLE 500 mg/NS 100 ML IV SCH (08:40)
[2020-07-26 09:42] LABS: CALCIUM 8.1 mg/dL (8.4-11.0); CREATININE 1.38 mg/dL (0.55-1.30); PHOSPHORUS 2.9 mg/dL (2.7-4.5); POTASSIUM 4.9 mmol/L (3.5-5.1)
[2020-07-26 09:58] VITALS: BP_SYST 94
[2020-07-26 11:31] LABS: ERYTHROCYTE SEDIMENTATION RATE 76 MM/HR (0-15)
[2020-07-26 12:25] LABS: C-REACTIVE PROTEIN QUANT 1.8 mg/dL (0-0.5)
[2020-07-26 16:41] VITALS: BP_SYST 119
[2020-07-26 20:15] VITALS: BP_SYST 101; BP_SYST 109
[2020-07-26] MEDS ORDERED: cefTRIAXone 1 GM IVPB PREMIX 50 ML IV ONE (20:43)
[2020-07-26] MEDS: cefTRIAXone 1 GM in D5W 50 ML IV SCH (20:54)
[2020-07-26] MEDS: NACL 0.9% 1,000 ML IV SCH (20:55)
[2020-07-27 00:15] VITALS: BP_SYST 98
[2020-07-27 06:40] LABS: BASOPHILS % (AUTO) 0.4 % (0.0-2.0); EOSINOPHILS # (AUTO) 0.2 K/uL (0.0-0.4); EOSINOPHILS % (AUTO) 1.7 % (0.0-4.0); HEMATOCRIT 30.9 % (36-54); HEMOGLOBIN 10.5 g/dL (14.0-18.0); LYMPHOCYTES # (AUTO) 1.5 K/uL (1.0-5.5); LYMPHOCYTES % (AUTO) 14.2 % (20.5-51.5); MEAN CORPUSCULAR HEMOGLOBIN 34 pg (27-31); MEAN CORPUSCULAR HGB CONC 34 % (32-36); MEAN CORPUSCULAR VOLUME 100 fL (79.0-98.0); MONOCYTES # (AUTO) 0.6 K/uL (0.0-1.0); MONOCYTES % (AUTO) 5.4 % (1.7-9.3); NEUTROPHILS # (AUTO) 8.1 K/uL (1.8-7.7); NEUTROPHILS % (AUTO) 78.3 % (40.0-70.0); PLATELET COUNT (AUTO) 528 K/uL (130-430); RED CELL DISTRIBUTION WIDTH 12.8 % (9.0-15.0); WHITE BLOOD COUNT (AUTO) 10.3 K/uL (4.8-10.8)
[2020-07-27 07:55] LABS: ALBUMIN 2.2 g/dL (3.4-4.8); CALCIUM 8.1 mg/dL (8.4-11.0); CREATININE 1.49 mg/dL (0.55-1.30); POTASSIUM 4.4 mmol/L (3.5-5.1); TOTAL BILIRUBIN 0.1 mg/dL (0.0-1.0)
[2020-07-27 08:32] LABS: ERYTHROCYTE SEDIMENTATION RATE 67 MM/HR (0-15)
[2020-07-27 11:53] LABS: C-REACTIVE PROTEIN QUANT 1.3 mg/dL (0-0.5)
[2020-07-27 12:00] VITALS: BP_SYST 97
[2020-07-27 16:00] VITALS: BP_SYST 109
[2020-07-27] MEDS: cefTRIAXone 1 GM in D5W 50 ML IV SCH (17:48)
[2020-07-27 20:00] VITALS: BP_SYST 105
[2020-07-27] MEDS: NACL 0.9% 1,000 ML IV SCH (22:03)
[2020-07-28] VITALS: BP_SYST 112
[2020-07-28 07:29] LABS: BASOPHILS % (AUTO) 0.2 % (0.0-2.0); EOSINOPHILS # (AUTO) 0.2 K/uL (0.0-0.4); EOSINOPHILS % (AUTO) 2.3 % (0.0-4.0); HEMATOCRIT 32.5 % (36-54); HEMOGLOBIN 10.9 g/dL (14.0-18.0); LYMPHOCYTES # (AUTO) 1.3 K/uL (1.0-5.5); LYMPHOCYTES % (AUTO) 13.2 % (20.5-51.5); MEAN CORPUSCULAR HEMOGLOBIN 33 pg (27-31); MEAN CORPUSCULAR HGB CONC 33 % (32-36); MEAN CORPUSCULAR VOLUME 100 fL (79.0-98.0); MONOCYTES # (AUTO) 0.6 K/uL (0.0-1.0); MONOCYTES % (AUTO) 5.8 % (1.7-9.3); NEUTROPHILS # (AUTO) 7.7 K/uL (1.8-7.7); NEUTROPHILS % (AUTO) 78.5 % (40.0-70.0); PLATELET COUNT (AUTO) 574 K/uL (130-430); RED BLOOD CELL COUNT(AUTO) 3.27 MIL/uL (4.2-6.2); RED CELL DISTRIBUTION WIDTH 12.8 % (9.0-15.0); WHITE BLOOD COUNT (AUTO) 9.9 K/uL (4.8-10.8)
[2020-07-28 07:40] LABS: CALCIUM 8.1 mg/dL (8.4-11.0); CREATININE 1.34 mg/dL (0.55-1.30); PHOSPHORUS 3.2 mg/dL (2.7-4.5); POTASSIUM 4.3 mmol/L (3.5-5.1)
[2020-07-28 08:23] VITALS: BP_SYST 114
[2020-07-28 10:58] VITALS: BP_SYST 105
[2020-07-28 12:30] LABS: ERYTHROCYTE SEDIMENTATION RATE 67 MM/HR (0-15)
[2020-07-28] MEDS ORDERED: DIPHENHYDRAMINE HCL 50 MG CAPSULE PO PRN (13:15)
[2020-07-28] MEDS ORDERED: DIPHENHYDRAMINE HCL 50 MG CAPSULE ONE (13:23)
[2020-07-28 14:53] VITALS: BP_SYST 105
[2020-07-28] MEDS ORDERED: LEVO250T58 PO (16:23)
[2020-07-28] MEDS: cefTRIAXone 1 GM in D5W 50 ML IV SCH (16:49)
[2020-07-28] MEDS: NACL 0.9% 1,000 ML IV SCH (16:50)
[2020-07-28 17:18] VITALS: BP_SYST 101
[2020-07-28 19:57] VITALS: BP_SYST 95
[2020-07-29] VITALS: BP_SYST 98
[2020-07-29 06:24] LABS: BASOPHILS % (AUTO) 0.3 % (0.0-2.0); EOSINOPHILS # (AUTO) 0.2 K/uL (0.0-0.4); EOSINOPHILS % (AUTO) 2.2 % (0.0-4.0); HEMATOCRIT 30.2 % (36-54); HEMOGLOBIN 10.3 g/dL (14.0-18.0); LYMPHOCYTES # (AUTO) 1.3 K/uL (1.0-5.5); LYMPHOCYTES % (AUTO) 11.8 % (20.5-51.5); MEAN CORPUSCULAR HEMOGLOBIN 34 pg (27-31); MEAN CORPUSCULAR HGB CONC 34 % (32-36); MEAN CORPUSCULAR VOLUME 99 fL (79.0-98.0); MONOCYTES # (AUTO) 0.7 K/uL (0.0-1.0); MONOCYTES % (AUTO) 6.4 % (1.7-9.3); NEUTROPHILS # (AUTO) 8.5 K/uL (1.8-7.7); NEUTROPHILS % (AUTO) 79.3 % (40.0-70.0); PLATELET COUNT (AUTO) 572 K/uL (130-430); RED BLOOD CELL COUNT(AUTO) 3.04 MIL/uL (4.2-6.2); RED CELL DISTRIBUTION WIDTH 12.8 % (9.0-15.0); WHITE BLOOD COUNT (AUTO) 10.7 K/uL (4.8-10.8)
[2020-07-29 07:43] LABS: ALBUMIN 2.3 g/dL (3.4-4.8); CREATININE 1.33 mg/dL (0.55-1.30); PHOSPHORUS 3.3 mg/dL (2.7-4.5); POTASSIUM 4.2 mmol/L (3.5-5.1); TOTAL BILIRUBIN 0.1 mg/dL (0.0-1.0)
[2020-07-29 09:35] VITALS: BP_SYST 106
[2020-07-29 10:44] LABS: C-REACTIVE PROTEIN QUANT 0.6 mg/dL (0-0.5)
[2020-07-29 12:33] VITALS: BP_SYST 104
[2020-07-29 14:24] LABS: ERYTHROCYTE SEDIMENTATION RATE 49 MM/HR (0-15)
== END 2020-07-29 15:54 | DRG 710 ==
LOC: SED 15:08 → STU 19:04 → SMU 07-17 11:20 → STU 07-21 23:12 → SMU 07-24 17:41
PROVIDERS: ADMIT Preventive Medicine Preventive Medicine/Occupational Environmental Medicine; ATTEND Preventive Medicine Preventive Medicine/Occupational Environmental Medicine
PROC: 0TBB0ZZ Excision of Bladder, Open Approach (ICD-10-PCS; 2020-07-21)
PROC: 0TCB0ZZ Extirpation of Matter from Bladder, Open Approach (ICD-10-PCS; 2020-07-21)
PROC: 0DNU0ZZ Release Omentum, Open Approach (ICD-10-PCS; 2020-07-21)
PROC: 0TJB8ZZ Inspection of Bladder, Via Natural or Artificial Opening Endoscopic (ICD-10-PCS; principal; 2020-07-21 16:30)
DX: A41.9 Sepsis, unspecified organism (principal); E43 Unspecified severe protein-calorie malnutrition; E87.1 Hypo-osmolality and hyponatremia; E87.5 Hyperkalemia; N13.6 Pyonephrosis; N17.9 Acute kidney failure, unspecified; N15.1 Renal and perinephric abscess; D64.9 Anemia, unspecified; K44.9 Diaphragmatic hernia without obstruction or gangrene; N18.9 Chronic kidney disease, unspecified; K59.09 Other constipation; E88.09 Other disorders of plasma-protein metabolism, not elsewhere classified; N32.3 Diverticulum of bladder; N21.0 Calculus in bladder; R33.9 Retention of urine, unspecified; E83.39 Other disorders of phosphorus metabolism; Z20.828 Contact with and (suspected) exposure to other viral communicable diseases; E83.42 Hypomagnesemia; E83.51 Hypocalcemia; Z68.22 Body mass index [BMI] 22.0-22.9, adult
CPT/HCPCS: 36415; 76376; 80048; 80053; 81000-TC; 82962; 83690-TC; 83735-TC; 84100-TC; 85025; 85610-TC; 85651-TC; 85730-TC; 86140; 86886; 86900; 86901; 87040-TC; 87081; 87086; 88300; 93005; 94640; 96374; 96375; 99285; C1758; G0378; J0610; J0696; J1170; J1885; J2001; J2250; J2370; J2405; J2704; J2765; J3010; J3475; J3490; J7030; J7050; J7060; J7120; J7613; Q0163; U0003